=== PATIENT | female | born 1955 ===

== ENCOUNTER 2023-11-08 09:52 | Outpatient (AMB) | payer MEDICARE, SELFPAY ==
[2023-11-08 10:05] VITALS: BP 130/70; PULSE 78; O2SAT 98; BMI 37.0
--- NOTE | 2023-11-08 10:05 | MHC.OFFVIS ---
Intake Vital Signs 11/08/23 10:05 Height 5 ft Weight 189 lb 9.561 oz BMI 37.0 BP 130/70 Blood Pressure Location Lt brachial Position Sitting Pulse 78 Pulse Source Pulse Oximeter Pulse Oximetry (%) 98 Oxygen Delivery Method Room Air Intake Visit Reasons: Tracheobronchomalacia/Asthma [place] [employer] Required: No Allergies ibuprofen [From Motrin] Adverse Reaction (Severe, Verified 11/08/23 10:09) Stomach Upset Iodinated Contrast Media Adverse Reaction (Severe, Verified 11/08/23 10:09) Itching shellfish derived Adverse Reaction (Severe, Verified 11/08/23 10:09) Itching HPI HPI Comments History of Present Illness Details The patient is here for pulmonary evaluation. The patient is a 68 year woman with known severe persistent asthma and also diagnosis of tracheobronchomalacia. She was referred to Allergy immunology and she tried multiple biologic injections without any improvement. In addition to that she had been on allergy shots but no significant improvement. She was subsequently referred to [place] at the tracheobronchomalacia clinic. There she was evaluated for potential stent placement. Although the patient was unsure if she wanted to undergo that intervention. Apparently she will also also offered thermal plasty but again she was not sure. Therefore she is continue with current regimen. She had been on azithromycin 3 times a week for chronic bronchitis but she had stopped it. In addition to that she was prescribed Daliresp but she had not started it as of yet. Explained to her that this is a very good medications for her and she should really consider starting. We talked about the adverse effects in the patient is comfortable at least trying the medications. The patient will undergo blood work in addition that will try to provide a sputum culture. The patient did have a CT scan of the chest that [facility]. It appears that she does have significant tracheobronchomalacia but mainly severe in the central bronchi. Explained to her that because of the central airway obstruction she will likely have wheezing. The patient will undergo a blood work will start the new medications for her respiratory condition and will follow-up to discuss the findings. [facility] Medical History (Updated 11/10/23 @ 20:12 by Franky Ch MD) Tracheobronchomalacia Asthma Asthma, cold induced Bronchitis Social History (Updated 11/08/23 @ 10:16 by YOGI Hinson) Patient Tobacco Use Status: Never used Tobacco Review of Systems Const Denies fever(s) Eyes Denies change in vision ENT Reports nasal congestion, Reports nasal discharge and Reports post nasal drip Card Denies chest pain and Reports dyspnea on exertion Resp Reports chest congestion, Reports cough, Reports dyspnea on exertion and Reports wheezing GI Reports dyspepsia and Reports heartburn Musc Reports no additional complaints Skin/Breast Denies rash Neuro Reports no additional complaints Vahid/Lymph Denies lymphadenopathy Aller/Immun Reports wheezing Physical Exam Vital Signs: Last Vital Signs Pulse 78 11/08/23 10:05 BP 130/70 11/08/23 10:05 Pulse Ox 98 11/08/23 10:05 Oxygen Delivery Method Room Air 11/08/23 10:05 BMI result Body Mass Index 37.0 Const General: comfortable HEENT Head: Yes normocephalic Neck Neck: Yes supple Chest Chest palpation & inspection: normal inspection of the chest Resp Effort & Inspection: normal respiratory effort and prolonged expiratory phase Auscultation: wheezes and diminished lung sounds Cardio Heart sounds: S1 normal heart sound present and S2 normal heart sound present GI Palpation (GI): Soft to palpation Skin General skin exam: no rashes or lesions noted Extrem General: Yes no clubbing, cyanosis or edema Results Reviewed Results Reviewed: reviewed her records from [place] and . CT chest with significant TBM consider referral to Interventional Pulmonary if needed F/U 6-8 weeks Assessment & Plan Assessment & Plan (1) Asthma: Code(s): J45.909 - Unspecified asthma, uncomplicated (2) Tracheobronchomalacia: Code(s): J39.8 - Other specified diseases of upper respiratory tract (3) Bronchitis: Code(s): J40 - Bronchitis, not specified as acute or chronic Plan contiune Formoterol continue budesonide continue Yulperi Start Daliresp 250mcg and will increase slowly to tolerate restart Azithromycin MWF Sputum cx Bloodwork CPT with acapella valve after nebulizer therapy Orders: Orders Venous Blood Gas 11/08/23 J40 - Bronchitis, not specified as acute or chronic, J45.909 - Unspecified asthma, uncomplicated Complete Blood Count Auto Diff 11/08/23 J40 - Bronchitis, not specified as acute or chronic, J45.909 - Unspecified asthma, uncomplicated Immunoglobulin E 11/08/23 J40 - Bronchitis, not specified as acute or chronic, J45.909 - Unspecified asthma, uncomplicated Immunoglobulin G Subclasses 11/08/23 J40 - Bronchitis, not specified as acute or chronic, J45.909 - Unspecified asthma, uncomplicated Basic Metabolic Panel 11/08/23 J40 - Bronchitis, not specified as acute or chronic, J45.909 - Unspecified asthma, uncomplicated Erythrocyte Sedimentation Rate 11/08/23 J40 - Bronchitis, not specified as acute or chronic, J45.909 - Unspecified asthma, uncomplicated Hypersensitive Pneumonitis Prf 11/08/23 J40 - Bronchitis, not specified as acute or chronic, J45.909 - Unspecified asthma, uncomplicated, R91.8 - Other nonspecific abnormal finding of lung field Immunoglobulins,IgG IgA IgM 11/08/23 J40 - Bronchitis, not specified as acute or chronic, J45.909 - Unspecified asthma, uncomplicated Sputum Cult + Gram stain 11/08/23 J40 - Bronchitis, not specified as acute or chronic, J45.909 - Unspecified asthma, uncomplicated Medications: New prednisone 10 mg PO DAILY 30 days 30 tabs 11RF roflumilast (Daliresp) 250 mcg PO DAILY 30 days 30 tabs 11RF J44.9 - Chronic obstructive pulmonary disease, unspecified Coding Level of Care Code New Pt Level 5 (27154) Diagnoses Asthma J45.909 Tracheobronchomalacia J39.8 Bronchitis J40 Time Spent (min) 60
== END 2023-11-08 10:41 | disposition home or self-care (01) ==
PROVIDERS: PCP Internal Medicine; Referring Provider Allergy & Immunology; Visit Provider Hospitalist
DX: J45.909 Unspecified asthma, uncomplicated (principal); J39.8 Other specified diseases of upper respiratory tract
CPT/HCPCS: 99205

== ENCOUNTER → 2023-11-08 09:52 | Outpatient (BNVA) | payer MEDICARE, SELFPAY | PROVIDERS: PCP Internal Medicine; Referring Provider Allergy & Immunology; Visit Provider Hospitalist | DX: J39.8 Other specified diseases of upper respiratory tract (principal); J45.909 Unspecified asthma, uncomplicated; J40 Bronchitis, not specified as acute or chronic | CPT/HCPCS: 99202 ==

== ENCOUNTER 2024-01-02 10:05 | Outpatient (AMB) | payer MEDICARE, SELFPAY ==
[2024-01-02 10:05] VITALS: BMI 36.9
--- NOTE | 2024-01-02 10:05 | A.OFFVIS_ITS ---
Intake Vital Signs 01/02/24 10:05 Height 5 ft Weight 189 lb BMI 36.9 Intake Visit Reasons: Tracheobronchomalacia/Asthma Group Worker Required: No Allergies ibuprofen [From Motrin] Adverse Reaction (Severe, Verified 01/02/24 10:07) Stomach Upset Iodinated Contrast Media Adverse Reaction (Severe, Verified 01/02/24 10:07) Itching pistachio nut Adverse Reaction (Severe, Verified 01/02/24 10:07) Closed Throat shellfish derived Adverse Reaction (Severe, Verified 01/02/24 10:07) Itching Allergy Shot Adverse Reaction (Severe, Uncoded 01/02/24 10:07) Anaphylaxis HPI HPI Comments History of Present Illness Details The patient is a 68 year woman with known severe persistent asthma and also diagnosis of tracheobronchomalacia. She was referred to Allergy immunology and she tried multiple biologic injections without any improvement. In addition to that she had been on allergy shots but no significant improvement. She was subsequently referred to [place] at the tracheobronchomalacia clinic. There she was evaluated for potential stent placement. Although the patient was unsure if she wanted to undergo that intervention. Apparently she will also also offered thermal plasty but again she was not sure. Therefore she is continue with current regimen. She had been on azithromycin 3 times a week for chronic bronchitis but she had stopped it. In addition to that she was prescribed Raffaele iresp but she had not started it as of yet. Explained to her that this is a very good medications for her and she should really consider starting. We talked about the adverse effects in the patient is comfortable at least trying the medications. The patient will undergo blood work in addition that will try to provide a sputum culture. The patient did have a CT scan of the chest that [facility]. It appears that she does have significant tracheobronchomalacia but mainly severe in the central bronchi. Explained to her that because of the central airway obstruction she will likely have wheezing. The patient will undergo a blood work will start the new medications for her respiratory condition and will follow-up to discuss the findings. 01/02/2024 the patient has a telehealth v isit today. Patient continues have worsening cough shortness of breath and wheezing. She has minimal to get off the prednisone. She has been not pulmonary rehabilitation and she was found to be more wheezy and it was recommended that she increase her prednisone. However, she is very concerned because she has a hard time with the prednisone already it affects her mood makes her more edgy and irritable. She has been taking 10 mg daily. The patient has not started the Daliresp. Explained to her the Daliresp is to try to minimize on the need for prednisone. Therefore she was started. She can started slowly to make sure she develops tolerance. 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 The patient already was a [place] and she was evaluated for tracheobronchomalacia. Therefore, will try the Daliresp and if the patient continues to be symptomatic consider bronchoscopy to readdress the airway issue. ON LICENSE OF [facility] Medical History (Updated 01/05/24 @ 21:12 by Franky Ch MD) Tracheobronchomalacia Asthma Asthma, cold induced Bronchitis Social History (Updated 11/08/23 @ 10:16 by YOGI Hinson) Patient Tobacco Use Status: Never used Tobacco Review of Systems Const Denies fever(s) Eyes Denies change in vision ENT Reports nasal congestion, Reports nasal discharge and Reports post nasal drip Card Denies chest pain and Reports dyspnea on exertion Resp Reports chest congestion, Reports cough, Reports dyspnea on exertion and Reports wheezing GI Reports dyspepsia and Reports heartburn Musc Reports no additional complaints Skin/Breast Denies rash Neuro Reports no additional complaints Vahid/Lymph Denies lymphadenopathy Aller/Immun Reports wheezing Physical Exam Vital Signs: BMI result Body Mass Index 36.9 Const General: comfortable Orientation/consciousness: patient oriented x3 Resp Effort & Inspection: normal respiratory effort and able to speak in complete sentences Neuro General: patient oriented x3 Assessment & Plan Assessment & Plan (1) Asthma: Code(s): J45.909 - Unspecified asthma, uncomplicated Qualifiers: Asthma severity: severe Asthma persistence: persistent Asthma complication type: uncomplicated Qualified Code(s): J45.50 - Severe persistent asthma, uncomplicated (2) Tracheobronchomalacia: Code(s): J39.8 - Other specified diseases of upper respiratory tract (3) Bronchitis: Code(s): J40 - Bronchitis, not specified as acute or chronic Plan contiune Formoterol continue budesonide continue Yulperi Start Daliresp 250mcg and will increase slowly to tolerate continue Azithromycin MWF cough medicine consider Bronchoscopy CPT with acapella valve after nebulizer therapy wean prednisone 10mg->10mg every other day F/U 4-6 weeks Medications: New dextromethorphan HBr (Tussin Cough (DM only)) 15 mg PO Q6H PRN 120 caps 4RF cough chlorpheniramine maleate do not exceed 2 doses per 24 hrs 4 mg PO Q8H 30 days PRN 60 tabs 5RF itching Telehealth Telehealth Location of provider rendering services: practice address Location of patient: address on file Patient Identification confirmed using: Name, : Yes Telehealth method: voice only Patient verbally consented to treatment: Yes Patient verbally consented to billing insurance company: Yes Patient informed of any privacy concerns related to visit: Yes Coding Level of Care Code Tele Est Pt Level 4 (88370) Diagnoses Severe persistent asthma without complication J45.50 Asthma severity: severe Asthma persistence: persistent Asthma complication type: uncomplicated Tracheobronchomalacia J39.8 Bronchitis J40 Time Spent (min) 15
== END 2024-01-02 10:38 | disposition home or self-care (01) ==
LOC: HO.HPS 10:05
PROVIDERS: PCP Internal Medicine; Visit Provider Hospitalist
DX: J45.50 Severe persistent asthma, uncomplicated (principal); J39.8 Other specified diseases of upper respiratory tract; J40 Bronchitis, not specified as acute or chronic
CPT/HCPCS: 99442

== ENCOUNTER → 2024-01-02 10:05 | Outpatient (BNVA) | payer MEDICARE, SELFPAY | PROVIDERS: PCP Internal Medicine; Visit Provider Hospitalist | DX: J40 Bronchitis, not specified as acute or chronic (principal); J45.909 Unspecified asthma, uncomplicated; J44.9 Chronic obstructive pulmonary disease, unspecified ==